=== PATIENT | female | born 1995 | race Caucasian/White ===

== ENCOUNTER 2017-11-19 12:01 | Outpatient (CLI) | payer OTHER ==
[2017-11-19 14:45] VITALS: BP 142/78; PULSE 103; RESP 18; TEMP 97.2
== END 2017-11-19 13:16 | disposition home or self-care (01) ==
LOC: FBPOP 12:01 → EDUNIT# 12:01 → FBPOP 13:16
PROVIDERS: ATTEND Obstetrics & Gynecology Obstetrics
DX: Z53.9 Procedure and treatment not carried out, unspecified reason (principal)

== ENCOUNTER 2018-01-03 05:38 | Inpatient (IN) | payer OTHER ==
[2018-01-03] MEDS ORDERED: ceFAZolin IN SWFI 2 GM/20 ML SYRINGE IVP ONE (05:48)
[2018-01-03] MEDS ORDERED: CITRIC ACID-SODIUM CITRATE 15 ML CUP PO ONE (05:48)
[2018-01-03] MEDS: LACTATED RINGERS 1,000 ML IV SCH ×2 (06:06→16:11)
[2018-01-03 06:10] LABS: Basophils % (A) 0 %; Eosinophils # (A) 0.1 k/uL (0-0.7); Eosinophils % (A) 1 %; HCT 36.5 % (34.0-46.0); HGB 12.3 gm/dL (11.4-16.0); Lymphocytes # (A) 2.2 k/uL (1.0-4.8); Lymphocytes % (A) 20 %; MCH 28.3 pg (25.0-35.0); MCHC 33.6 g/dL (31.0-37.0); MCV 84.1 fL (80.0-100.0); Mean Platelet Volume 7.6; Monocytes # (A) 0.4 k/uL (0-1.0); Monocytes % (A) 3 %; Neutrophils # (A) 7.9 k/uL (1.3-7.7); Neutrophils % (A) 73 %; Platelet Count 231 k/uL (150-450); RBC 4.34 m/uL (3.80-5.40); RDW 13.7 % (11.5-15.5); WBC 10.9 k/uL (3.8-10.6)
[2018-01-03 06:34] VITALS: BMI 34.8
[2018-01-03] MEDS ORDERED: LACTATED RINGERS 1,000 ML BAG IV ONE (07:30)
[2018-01-03] MEDS ORDERED: OXYTOCIN 10 UNIT/ML 1 ML VIAL ONE (07:30)
[2018-01-03] MEDS ORDERED: NALBUPHINE 10 MG/ML AMPUL ONE (07:30)
[2018-01-03] MEDS ORDERED: MORPHINE SULFATE (PF) 0.3 MG/0.3 ML SYR ONE (07:30)
[2018-01-03] MEDS ORDERED: PHENYLEPHRINE-0.9% NACL SYG 1 MG/10 ML SYRINGE ONE (07:30)
[2018-01-03] MEDS ORDERED: ePHEDrine 50 MG/ML 1 ML AMP ONE (07:30)
[2018-01-03] MEDS ORDERED: ONDANSETRON 4 MG/2 ML VIAL ONE (07:30)
[2018-01-03] MEDS ORDERED: diphenhydrAMINE 50 MG CAP PO PRN (08:15)
[2018-01-03] MEDS ORDERED: ACETAMINOPHEN TAB 325 MG TAB PO PRN (08:15)
[2018-01-03] MEDS ORDERED: OXYTOCIN 20 UNITS/1000 ML NS 1,000 ML IV SCH (08:15)
[2018-01-03] MEDS ORDERED: diphenhydrAMINE 25 MG CAP PO PRN (08:15)
[2018-01-03] MEDS ORDERED: diphenhydrAMINE 50 MG/ML 1 ML VIAL IVP PRN ×3 (08:15→11:46)
[2018-01-03] MEDS ORDERED: METOCLOPRAMIDE 5 MG/ML 2 ML VIAL IVP PRN (08:15)
[2018-01-03] MEDS ORDERED: NALOXONE 0.4 MG/ML 1 ML VIAL IV PRN ×2 (08:15→11:46)
[2018-01-03] MEDS ORDERED: ZOLPIDEM 5 MG TAB PO PRN (08:15)
[2018-01-03] MEDS ORDERED: ONDANSETRON 4 MG/2 ML VIAL IVP PRN (08:15)
[2018-01-03] MEDS ORDERED: ACETAMINOPHEN IV (For NPO) 1,000 MG in EMPTY BAG 1 BAG IVPB STA (08:20)
--- NOTE | 2018-01-03 08:22 | P.HPOB ---
History of Present Illness H&P Date: 01/03/18 Chief Complaint: IUP at 39-0/7 weeks, history of 1 desires repeat This is a 22-year-old 2 para 1 at 39-0/7 weeks with an estimated date of confinement of 01/10/2018. Patient presents for repeat and she had a prior secondary to arrest of labor. This morning she notes good movement denies contractions, vaginal bleeding, loss of fluid. On blood work blood type B+, rubella immune, hepatitis B surface antigen negative, HIV negative, RPR nonreactive, GBS negative. Review of Systems Constitutional: Denies chills, Denies fever Cardiovascular: Reports edema Respiratory: Denies cough Gastrointestinal: Denies constipation, Denies diarrhea Genitourinary: Reports Past Medical History Past Medical History: Asthma History of Any Multi-Drug Resistant Organisms: None Reported Past Surgical History: Section Past Anesthesia/Blood Transfusion Reactions: No Reported Reaction Past Psychological History: No Psychological Hx Reported Smoking Status: Never smoker Past Alcohol Use History: None Reported Past Drug Use History: None Reported - Past Family History Mother Family Medical History: No Reported History Father Family Medical History: Hyperlipidemia, Hypertension Medications and Allergies Home Medications Medication Instructions Recorded Confirmed Type Pnv,Calcium 72/Iron/Folic Acid 1 tab PO DAILY 08/10/17 01/03/18 History [ Plus Tablet] Allergies Allergy/AdvReac Type Severity Reaction Status Date / Time No Known Allergies Allergy Verified 01/03/18 05:47 Exam Osteopathic Statement: *. No significant issues noted on an osteopathic structural exam other than those noted in the History and Physical/Consult. - Vital Signs Vital signs: Vital Signs Temp Pulse Resp BP Pulse Ox 01/03/18 05:47 97.3 F L 115 H 16 131/81 97 Intake and Output 01/02/18 01/03/18 01/03/18 22:59 06:59 14:59 Other: # Voids 1 Weight 107.048 kg - OBG Physical Exam Abdomen: gravid Results Result Diagrams: 01/03/18 06:00 Abnormal Lab Results - Last 24 Hours (Table) 01/03/18 Range/Units 06:00 WBC 10.9 H (3.8-10.6) k/uL Neutrophils # 7.9 H (1.3-7.7) k/uL Assessment and Plan (1) Term Current Visit: Yes Status: Acute Code(s): Z34.80 - ENCOUNTER FOR SUPRVSN OF NORMAL , UNSP TRIMESTER SNOMED Code(s): 00477091 (2) H/O section Current Visit: Yes Status: Acute Code(s): Z98.891 - HISTORY OF UTERINE SCAR FROM PREVIOUS SURGERY SNOMED Code(s): 905564834 Plan: Plan repeat section this morning. Questions answered in detail risks reviewed including but not limited to infection, bleeding, damage to bladder, injury. Patient states understanding and informed consent was obtained. Time with Patient: Less than 30
--- NOTE | 2018-01-03 08:25 | P.OP ---
Date of Procedure: 01/03/18 Preoperative Diagnosis: IUP at 39-0/7 weeks, history of 1 desires repeat. Postoperative Diagnosis: Same Procedure(s) Performed: Repeat section Anesthesia: spinal Surgeon: Briseyda Ochoa Laborer [employer] #1: Kassidy Herrera Estimated Blood Loss (ml): 600 IV fluids (ml): 800 Urine output (ml): 100 Pathology: other (Placenta) Condition: stable Disposition: observation Indications for Procedure: History of 1 desires repeat Operative Findings: Normal uterus tubes and ovaries were appreciated Description of Procedure: The patient was prepped and draped in the usual fashion after spinal anesthesia was administered by anesthesia. A Pfannenstiel incision was made and extended of the abdominal cavity without difficulty. The bladder peritoneum was elevated and incised and reflected distally. A 2 cm incision was made in the transverse plane of the lower uterine segment to enter the uterus at which time clear fluid was noted. The incision was extended in both directions using the bandage scissors. The head was encountered within the field and delivered up and through the incision where the nose and mouth were thoroughly suctioned. Remainder of the was delivered onto the surgical field where the cord was doubly clamped, cut, and the was passed for resuscitative measures with weight and Apgars as noted above. A segment of cord was then doubly clamped, cut, and set aside should cord gases become necessary. The placenta was delivered manually, intact, and was grossly normal with a grossly normal three-vessel cord. The uterus was exteriorized and the interior cavity of the uterus swept of any remaining placental and membranous fragments with a laparotomy sponge. The margins of the incision were grasped with Allis clamps and the incision closed in 2 layers. First layer was a running locking layer of 0 vicryl from margin to margin followed by a second layer of 0- vicryl from margin to margin. Any small points of bleeding were then made hemostatic with the Bovie. Once hemostasis was achieved, the posterior cul-de-sac was suctioned with a guard and the uterine and ovarian findings are as noted above. The uterus was replaced within the abdominal cavity and the gutters swept of any remaining blood fluid or clot. The incision was again reexamined and hemostasis was noted to be excellent. Any small point of bleeding were made hemostatic with the Bovie. Once hemostasis was achieved the parietal peritoneum was loosely reapproximated. The layer of muscles were examined and made hemostatic with the Bovie. Attention was then turned to the fascia which was closed with 2 running stitches of 0 Vicryl proceeding from the lateral margins to the midpoint. The subcutaneous tissues were irrigated, made hemostatic with the Bovie, and reapproximated with a running stitch of 30 vicryl. The skin was reapproximated with 4-0 vicryl. Estimated blood loss for the case was approximately 600 mL. All sponge instrument and needle counts are correct. There were no complications. The patient tolerated the procedure well and proceeded to the recovery room in stable condition. Both mother and infant are resting comfortably in recovery.
[2018-01-03] MEDS ORDERED: IBUPROFEN IV 800 MG in SODIUM CHLORIDE 0.9% 250 ML IV ONE (09:00)
[2018-01-03] MEDS ORDERED: KETOROLAC 30 MG/ML 1 ML VIAL IVP PRN (11:46)
[2018-01-03] MEDS ORDERED: MORPHINE SULF 5MG/10ML VL IVP PRN (11:46)
[2018-01-03] MEDS ORDERED: NALBUPHINE 10 MG/ML AMPUL IV PRN (11:46)
--- NOTE | 2018-01-03 12:37 | P.PNOBGPC ---
Subjective - Subjective Principal diagnosis: POD 1 RCS Interval history: 22yo that presented for RCS this am. she is feeling well postoperatively and denies pain at this time. snyder remains and is draining clear yellow urine. tolerating clear liquids without n/v. minimal lochia is noted Patient reports: Reports appetite normal, Reports pain well controlled [place]: doing well Objective - Vital Signs Latest vital signs: Vital Signs Temp Pulse Resp BP Pulse Ox 01/03/18 12:20 97 F L 99 15 134/61 01/03/18 10:23 97 F L 94 16 120/71 01/03/18 09:53 97 15 126/70 01/03/18 09:23 98 15 123/70 98 01/03/18 09:04 93 14 121/52 97 01/03/18 08:51 98 14 127/61 96 01/03/18 08:38 100 14 124/59 95 01/03/18 08:23 97 F L 96 15 126/64 96 01/03/18 05:47 97.3 F L 115 H 16 131/81 97 Intake and Output 01/02/18 01/03/18 01/03/18 22:59 06:59 14:59 Output Total 850 Balance -850 Output: Urine 250 Estimated Blood Loss 600 Other: Voiding Method Indwelling Catheter # Voids 1 Weight 107.048 kg - Exam Abdomen: Present: soft Incision: Present: normal, dry, intact Uterus: Present: firm - Labs Labs: Abnormal Lab Results - Last 24 Hours (Table) 01/03/18 Range/Units 06:00 WBC 10.9 H (3.8-10.6) k/uL Neutrophils # 7.9 H (1.3-7.7) k/uL Assessment and Plan (1) Term Current Visit: Yes Status: Acute Code(s): Z34.80 - ENCOUNTER FOR SUPRVSN OF NORMAL , UNSP TRIMESTER SNOMED Code(s): 23361766 (2) H/O section Current Visit: Yes Status: Acute Code(s): Z98.891 - HISTORY OF UTERINE SCAR FROM PREVIOUS SURGERY SNOMED Code(s): 162227984 Plan: doing well post operatively, will plan snyder removal tonight and advance diet as tolerated.
[2018-01-04] MEDS: LACTATED RINGERS 1,000 ML IV SCH ×4 (02:23→10:53)
[2018-01-04] MEDS: SENNOSIDES-DOCUSATE SODIUM 1 EACH TAB PO SCH ×3 (02:26→20:32)
[2018-01-04] MEDS: IBUPROFEN 600 MG TAB PO PRN ×2 (07:46→15:13)
[2018-01-04 08:15] LABS: Basophils % (A) 0 %; Eosinophils # (A) 0.1 k/uL (0-0.7); Eosinophils % (A) 1 %; HGB 10.9 gm/dL (11.4-16.0); Lymphocytes # (A) 1.7 k/uL (1.0-4.8); Lymphocytes % (A) 19 %; MCH 28.1 pg (25.0-35.0); MCV 85.2 fL (80.0-100.0); Mean Platelet Volume 8.3; Monocytes # (A) 0.5 k/uL (0-1.0); Monocytes % (A) 5 %; Neutrophils # (A) 6.6 k/uL (1.3-7.7); Neutrophils % (A) 74 %; Platelet Count 182 k/uL (150-450); RBC 3.87 m/uL (3.80-5.40); RDW 13.6 % (11.5-15.5)
--- NOTE | 2018-01-04 08:34 | P.PN ---
Subjective Progress Note Date: 01/04/18 Slept well, moderate lochia rubra, pain well managed. Objective - Vital Signs Vital signs: Vital Signs Temp 98.7 F 01/04/18 04:00 Pulse 98 01/04/18 04:00 Resp 16 01/04/18 04:00 BP 119/66 01/04/18 04:00 Pulse Ox 97 01/04/18 04:00 Intake & Output 01/03/18 01/04/18 01/04/18 18:59 06:59 18:59 Output Total 1650 650 Balance -1650 -650 Output: Urine 1050 650 Uretheral ([place]) 800 Estimated Blood Loss 600 Other: Voiding Method Indwelling Catheter # Voids 1 - Constitutional General appearance: Present: average body habitus, cooperative - EENT Eyes: Present: PERRLA ENT: Present: hearing grossly normal - Neck Neck: Present: normal ROM - Respiratory Respiratory: bilateral: CTA - Cardiovascular Rhythm: regular - Gastrointestinal Gastrointestinal Comment(s): Fundus firm, midline, mobile, 18 week size, nontender. Incision clean and dry, well approximated. General gastrointestinal: Present: normal bowel sounds - Integumentary Integumentary: Present: normal - Musculoskeletal Musculoskeletal: Present: strength equal bilaterally - Psychiatric Psychiatric: Present: A&O x's 3, appropriate affect, intact judgment & insight - Labs CBC & Chem 7: 01/04/18 07:33 Labs: Abnormal Lab Results - Last 24 Hours (Table) 01/04/18 Range/Units 07:33 Hgb 10.9 L (11.4-16.0) gm/dL Hct 33.0 L (34.0-46.0) % Assessment and Plan Plan: Advance diet and activity. Circumcision performed this morning. Likely discharge home tomorrow. Time with Patient: Less than 30
[2018-01-04] MEDS: PRENATAL VIT-IRON-FOLIC ACID 1 EACH CAP PO SCH ×2 (12:36→17:00)
[2018-01-05] MEDS: LACTATED RINGERS 1,000 ML IV SCH (00:06)
[2018-01-05] MEDS: IBUPROFEN 600 MG TAB PO PRN ×2 (00:25→08:52)
[2018-01-05 07:53] VITALS: BP 132/81; PULSE 95; RESP 16; TEMP 98
[2018-01-05] MEDS: SENNOSIDES-DOCUSATE SODIUM 1 EACH TAB PO SCH (07:59)
[2018-01-05] MEDS: PRENATAL VIT-IRON-FOLIC ACID 1 EACH CAP PO SCH (09:28)
--- NOTE | 2018-01-05 10:17 | P.DS ---
Providers Date of admission: 01/03/18 05:38 Expected date of discharge: 01/05/18 Attending physician: Briseyda Ochoa Primary care physician: Stated None Hospital Course: Repeat section, declining option for . essentially unremarkable, group B strep cultures negative, rubella status immune, blood type B positive. Please see dictated history and physical for details. Patient underwent a repeat low transverse section, declining option for tubal ligation. She gave to a liveborn male with scores of 8 and 9 at one and 5 minutes respectively. Infant weighed 3600 g or 7 lbs. 15 oz. Please see dictated operative note for details. This morning the patient is doing well. She is voiding, and bleeding, passing flatus without difficulty. Vital signs are stable and she is afebrile. has been circumcised, he is doing well. Patient is not breast- feeding. Incision is clean and dry, intact, with Steri-Strips applied. Fundus is firm, midline, symmetric, 18 week size. Patient is judged to be in very good condition for discharge home. She is being discharged home with instructions to follow-up in the office for incision check in 2 weeks. She will use [id number] ibuprofen products, 200 mg pills, 3 every 6 hours as needed. I've asked her to call with any fevers shakes or chills, foul smelling or copious lochia, with any pain not alleviated by [id number] products, or indeed with any concerns. will follow-up with diesel service apprentice as instructed. Patient Condition at Discharge: Good Plan - Discharge Summary Discharge Rx Participant: Yes New Discharge Prescriptions: No Action Pnv,Calcium 72/Iron/Folic Acid [ Plus Tablet] 1 tab PO DAILY Discharge Medication List Pnv,Calcium 72/Iron/Folic Acid [ Plus Tablet] 1 tab PO DAILY 08/10/17 [ History] Follow up Appointment(s)/Referral(s): Briseyda Ochoa DO [Doctor of Osteopathic Medicine] - 2 Weeks Kassidy Herrera MD [STAFF PHYSICIAN] - As Needed Discharge Disposition: HOME SELF-CARE
== END 2018-01-05 11:00 | disposition home or self-care (01) | DRG 766 ==
LOC: 4FBP 05:38
PROVIDERS: ADMIT Obstetrics & Gynecology Obstetrics; ATTEND Obstetrics & Gynecology Obstetrics
PROC: 10D00Z1 Extraction of Products of Conception, Low, Open Approach (ICD-10-PCS; principal; 2018-01-03 07:30)
DX: O34.211 Maternal care for low transverse scar from previous cesarean delivery (principal); Z37.0 Single live birth; Z3A.39 39 weeks gestation of pregnancy; Z82.49 Family history of ischemic heart disease and other diseases of the circulatory system
CPT/HCPCS: 85025; 86850; 86900; 86901; 88307

== ENCOUNTER 2018-11-17 21:47 | Emergency (ER) | payer OTHER ==
[2018-11-17 22:12] VITALS: TEMP 98.2
[2018-11-17] MEDS ORDERED: ACETAMINOPHEN TAB 500 MG TAB PO STA (22:39)
--- NOTE | 2018-11-17 22:49 | ED ---
Fall HPI - General Source: patient Mode of arrival: ambulatory <May Keller - Last Filed: 11/18/18 01:38> <Mirian Walker - Last Filed: 11/18/18 02:45> - General Chief Complaint: Fall Stated Complaint: Fall left arm pain Time Seen by Provider: 11/17/18 22:09 - History of Present Illness Initial Comments: 23-year-old female patient presents to the emergency department today for evaluation of left shoulder pain after experiencing a fall yesterday. Patient states that she slipped and fell and landed on the left arm. She denies hitting her head or losing consciousness patient denies any neck or back pain. States that she has been having pain to the shoulder with any attempt at movement today. She denies taking anything for her symptoms. States that she does have some intermittent sharp pains radiating down the arm. Denies any pain to the elbow or wrist. Denies any other injuries. Patient does report being 12 weeks . She denies abdominal pain, abnormal vaginal bleeding or discharge. Patient denies any headache, chest pain, shortness of breath, dizziness, weakness, abdominal pain, nausea, vomiting, or difficulties with bowel movements or urination. (May Keller) - Related Data Home Medications Medication Instructions Recorded Confirmed Pnv,Calcium 72/Iron/Folic Acid 1 tab PO DAILY 08/10/17 11/17/18 [ Plus Tablet] Allergies Allergy/AdvReac Type Severity Reaction Status Date / Time No Known Allergies Allergy Verified 11/17/18 22:32 Review of Systems ROS Other: All systems not noted in ROS Statement are negative. <May Keller - Last Filed: 11/18/18 01:38> ROS Other: All systems not noted in ROS Statement are negative. <Mirian Walker - Last Filed: 11/18/18 02:45> ROS Statement: Those systems with pertinent positive or pertinent negative responses have been documented in the HPI. Past Medical History Past Medical History: Asthma History of Any Multi-Drug Resistant Organisms: None Reported Past Surgical History: Section Past Anesthesia/Blood Transfusion Reactions: No Reported Reaction Past Psychological History: No Psychological Hx Reported Smoking Status: Never smoker Past Alcohol Use History: None Reported Past Drug Use History: None Reported - Past Family History Mother Family Medical History: No Reported History Father Family Medical History: Hyperlipidemia, Hypertension <May Keller M - Last Filed: 11/18/18 01:38> General Exam Limitations: no limitations General appearance: alert, in no apparent distress, other (This is a well- developed, well-nourished adult female patient in no acute distress. Vital signs upon presentation are temperature 98.2F, pulse 106, respirations 18, blood pressure 130/92, pulse ox 99% on room air.) Eye exam: Present: normal appearance, PERRL, EOMI. Absent: scleral icterus, conjunctival injection, periorbital swelling Neck exam: Present: normal inspection, full ROM, other (Nontender, no step-off, no deformity to firm midline palpation of the posterior cervical spine. Full range of motion without pain or limitation.). Absent: tenderness, meningismus, lymphadenopathy Respiratory exam: Present: normal lung sounds bilaterally. Absent: respiratory distress, wheezes, rales, rhonchi, stridor Cardiovascular Exam: Present: regular rate, normal rhythm, normal heart sounds. Absent: systolic murmur, diastolic murmur, rubs, gallop, clicks GI/Abdominal exam: Present: soft, normal bowel sounds. Absent: distended, tenderness, guarding, rebound, rigid Extremities exam: Present: normal inspection, full ROM (Full passive range of motion with minimal discomfort. Active range of motion causes increased discomfort.), normal capillary refill, other (Skin to the arm is pink, warm, dry. Cap refills less than 3 seconds. Radial pulses 2+ and equal bilaterally.) . Absent: tenderness, pedal edema, joint swelling, calf tenderness Back exam: Present: normal inspection, other (Nontender, no step-off, no deformity to firm midline palpation of the thoracic and lumbar vertebrae. Full range of motion without pain or limitation.) Neurological exam: Present: alert, oriented X3, CN II-XII intact Psychiatric exam: Present: normal affect, normal mood Skin exam: Present: warm, dry, intact, normal color. Absent: rash <May Keller M - Last Filed: 11/18/18 01:38> Vital Signs 11/17/18 11/17/18 22:09 23:18 Temperature 98.2 F Pulse Rate 106 H 96 Respiratory 18 16 Rate Blood Pressure 130/92 126/72 O2 Sat by Pulse 99 98 Oximetry Medical Decision Making - Radiology Data Radiology results: report reviewed, image reviewed <May Keller - Last Filed: 11/18/18 01:38> <Mirian Walker - Last Filed: 11/18/18 02:45> - Medical Decision Making 23-year-old female patient presents to the emergency department today for evaluation of left shoulder pain after soap and fall accident. Physical examination did reveal full range of motion to the left shoulder. Neurovascular status was intact. X-ray showed no acute fracture or malalignment. We did discuss diagnosis of left shoulder strain. She is instructed to apply ice to the area. She is instructed to take anti- inflammatory medications. She is instructed to perform gentle range of motion exercises. She is instructed to follow-up with her primary care physician for recheck in 1-2 days. Return parameters discussed in detail. She verbalizes understanding and agrees with this plan. (May Keller) I was available for consultation in the emergency department. The history and physical exam were done by the midlevel provider. I was consulted for this patient's care. I reviewed the case with the midlevel provider and based on their presentation of the patient, I agree with the assessment, medical decision making and plan of care as documented. (Mirian Walker) - Radiology Data 2 views of the left shoulder were obtained. Report was reviewed in its entirety. Impression by Dr. Myers shows normal left shoulder x-rays (May Keller) Disposition Is patient prescribed a controlled substance at d/c from ED?: No Time of Disposition: 23:09 <May Keller - Last Filed: 11/18/18 01:38> <Mirian Walker - Last Filed: 11/18/18 02:45> Clinical Impression: Left shoulder strain Disposition: HOME SELF-CARE Condition: Good Instructions (If sedation given, give patient instructions): Shoulder Sprain ( ED) Additional Instructions: Apply ice to the left shoulder 20 minutes at a time at least 4 times daily. Perform gentle range of motion exercises. Follow-up with your primary care physician for recheck in 1-2 days. Return to the emergency department immediately for any new, worsening, or concerning symptoms. Referrals: Ankit Sequeira DO [Primary Care Provider] - 1-2 days
--- NOTE | 2018-11-17 23:04 | XR ---
EXAM: XR Left Shoulder Complete, 2 or More Views CLINICAL HISTORY: ITS.REASON XR Reason: Pain TECHNIQUE: Two or more views of the left shoulder. COMPARISON: No relevant prior studies available. FINDINGS: Bones/joints: Unremarkable. No acute fracture. No dislocation. Soft tissues: Unremarkable. IMPRESSION: Normal left shoulder x-rays.
[2018-11-17 23:20] VITALS: BP 126/72; PULSE 96; RESP 16
== END 2018-11-17 23:16 | disposition home or self-care (01) ==
LOC: EC 21:47
DX: O9A.211 Injury, poisoning and certain other consequences of external causes complicating pregnancy, first trimester (principal); S46.912A Strain of unspecified muscle, fascia and tendon at shoulder and upper arm level, left arm, initial encounter; Z3A.12 12 weeks gestation of pregnancy; W00.0XXA Fall on same level due to ice and snow, initial encounter
CPT/HCPCS: 99283

== ENCOUNTER 2019-05-23 09:06 | Inpatient (IN) | payer OTHER ==
[2019-05-22 12:00] VITALS: BMI 34.8
[2019-05-23] MEDS ORDERED: CITRIC ACID-SODIUM CITRATE 15 ML CUP PO ONE (09:37)
[2019-05-23] MEDS: LACTATED RINGERS 1,000 ML IV SCH ×3 (10:32→20:43)
[2019-05-23 10:55] LABS: Basophils % (A) 0 %; Eosinophils # (A) 0.1 k/uL (0-0.7); Eosinophils % (A) 1 %; HCT 35.6 % (34.0-46.0); HGB 11.4 gm/dL (11.4-16.0); Lymphocytes # (A) 2.4 k/uL (1.0-4.8); Lymphocytes % (A) 23 %; MCH 26.6 pg (25.0-35.0); MCHC 31.9 g/dL (31.0-37.0); MCV 83.4 fL (80.0-100.0); Mean Platelet Volume 8.2; Monocytes # (A) 0.5 k/uL (0-1.0); Monocytes % (A) 4 %; Neutrophils # (A) 7.2 k/uL (1.3-7.7); Neutrophils % (A) 69 %; Platelet Count 261 k/uL (150-450); RBC 4.26 m/uL (3.80-5.40); RDW 13.4 % (11.5-15.5); WBC 10.4 k/uL (3.8-10.6)
[2019-05-23] MEDS ORDERED: ONDANSETRON 4 MG/2 ML VIAL ONE (11:35)
[2019-05-23] MEDS ORDERED: MIDAZOLAM 2 MG/2 ML VIAL ONE (11:35)
[2019-05-23] MEDS ORDERED: OXYTOCIN 10 UNIT/ML 1 ML VIAL ONE (11:35)
[2019-05-23] MEDS ORDERED: fentaNYL (PF) 50 MCG/ML 2 ML AMP ONE (11:35)
[2019-05-23] MEDS ORDERED: LACTATED RINGERS 1,000 ML BAG IV ONE (11:35)
[2019-05-23] MEDS ORDERED: ePHEDrine SULFATE/0.9% NACL/PF 50 MG/5 ML SYRINGE IV ONE (11:35)
[2019-05-23] MEDS ORDERED: DEXAMETHASONE SOD PHOS (MDV) 100 MG/10 ML VIAL ONE (11:35)
[2019-05-23] MEDS ORDERED: MORPHINE SULFATE (PF) 0.3 MG/0.3 ML SYR ONE (11:35)
[2019-05-23] MEDS ORDERED: diphenhydrAMINE 50 MG/ML 1 ML VIAL IVP PRN ×3 (12:27→12:32)
[2019-05-23] MEDS ORDERED: MORPHINE SULFATE 2 MG/ML SYRINGE IVP PRN (12:27)
[2019-05-23] MEDS ORDERED: NALBUPHINE 10 MG/ML (1 ML AMP) IV PRN (12:27)
[2019-05-23] MEDS ORDERED: KETOROLAC 30 MG/ML 1 ML VIAL IVP PRN (12:27)
[2019-05-23] MEDS ORDERED: NALOXONE 0.4 MG/ML 1 ML VIAL IV PRN ×2 (12:27→12:32)
[2019-05-23] MEDS ORDERED: HYDROcodone/APAP 5-325MG 1 EACH TAB PO PRN (12:32)
[2019-05-23] MEDS ORDERED: ONDANSETRON 4 MG/2 ML VIAL IVP PRN (12:32)
[2019-05-23] MEDS ORDERED: ACETAMINOPHEN IV (For NPO) 1,000 MG in EMPTY BAG 1 BAG IVPB ONE (12:32)
[2019-05-23] MEDS ORDERED: diphenhydrAMINE 50 MG CAP PO PRN (12:32)
[2019-05-23] MEDS ORDERED: ACETAMINOPHEN TAB 325 MG TAB PO PRN (12:32)
[2019-05-23] MEDS ORDERED: ZOLPIDEM 5 MG TAB PO PRN (12:32)
[2019-05-23] MEDS ORDERED: METOCLOPRAMIDE 5 MG/ML 2 ML VIAL IVP PRN (12:32)
[2019-05-23] MEDS ORDERED: diphenhydrAMINE 25 MG CAP PO PRN (12:32)
[2019-05-23] MEDS ORDERED: IBUPROFEN IV 800 MG in SODIUM CHLORIDE 0.9% 250 ML IV ONE (12:34)
[2019-05-23] MEDS ORDERED: OXYTOCIN 20 UNITS/1000 ML NS 1,000 ML IV SCH (12:45)
--- NOTE | 2019-05-23 13:31 | P.HPOB ---
History of Present Illness H&P Date: 05/23/19 Chief Complaint: IUP @ 39 0/7 weeks, h/o c section x 2 This is a 24-year-old 3 para 2001 at 39-0/7 weeks that presents to labor and delivery for repeat section with tubal ligation. Patient states she is completed with family planning. Patient has had uncomplicated care with myself. Patient presents with good movement, she denies contractions, loss of fluid or vaginal bleeding today. On blood work shows a blood type of B+, rubella immune, hepatitis B surface antigen negative, HIV negative, RPR nonreactive, GBS is negative in addition. Review of Systems Constitutional: Denies chills, Denies fatigue, Denies fever Ears, nose, mouth and throat: Denies headache Cardiovascular: Reports edema Respiratory: Denies dyspnea Gastrointestinal: Denies nausea, Denies vomiting Genitourinary: Reports Past Medical History Past Medical History: Asthma Additional Past Medical History / Comment(s): CURRENT History of Any Multi-Drug Resistant Organisms: None Reported Past Surgical History: Section Past Anesthesia/Blood Transfusion Reactions: Family History of Problems w/ Anesthesia Additional Past Anesthesia/Blood Transfusion Reaction / Comment(s): MOTHER HAD PONV, TOOK LONGER TO AWAKEN Past Psychological History: No Psychological Hx Reported Smoking Status: Never smoker Past Alcohol Use History: None Reported Past Drug Use History: None Reported - Past Family History Mother Family Medical History: No Reported History Father Family Medical History: Hyperlipidemia, Hypertension Medications and Allergies Home Medications Medication Instructions Recorded Confirmed Type Acetaminophen [Tylenol Extra 1,000 mg PO Q6H PRN 05/22/19 05/23/19 History Strength] Albuterol Inhaler [Ventolin Hfa 1 - 2 puff INHALATION RT-Q6H PRN 05/22/19 05/23/19 History Inhaler] Allergies Allergy/AdvReac Type Severity Reaction Status Date / Time No Known Allergies Allergy Verified 05/22/19 11:47 Exam Osteopathic Statement: *. No significant issues noted on an osteopathic structural exam other than those noted in the History and Physical/Consult. 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 Cervical exam is deferred at this time. Results Result Diagrams: 05/23/19 10:30 Assessment and Plan (1) H/O section Current Visit: No Status: Acute Code(s): Z98.891 - HISTORY OF UTERINE SCAR FROM PREVIOUS SURGERY SNOMED Code(s): 174050371 (2) Term Current Visit: No Status: Acute Code(s): Z34.80 - ENCOUNTER FOR SUPRVSN OF NORMAL , UNSP TRIMESTER SNOMED Code(s): 14396094 Plan: Patient is admitted to labor and delivery for planned repeat section with tubal ligation. Surgery is reviewed with the patient in detail including but not limited to infection, bleeding, damage to bladder, bowel, ureteric, o ther pelvic structures, or injury. Patient states understanding and wishes to proceed patient states she is completed with family planning and desires tubal ligation risks of failure with the tubal are discussed 2-3 per thousand are reviewed patient states understanding if she misses.a period. She is to be seen.
--- NOTE | 2019-05-23 13:33 | P.OP ---
Date of Procedure: 05/23/19 Preoperative Diagnosis: IUP at 39-0/7 weeks, history of 2 desires repeat Postoperative Diagnosis: Same Procedure(s) Performed: Repeat section with tubal ligation Anesthesia: spinal Surgeon: Briseyda Ochoa Flour Mixer Helper #1: Bobby Delgado Estimated Blood Loss (ml): 500 IV fluids (ml): 1,000 Urine output (ml): 200 Pathology: none sent Condition: stable Disposition: PACU Indications for Procedure: h/o c section x 2 and family status complete Operative Findings: Normal uterus tubes and ovaries were appreciated. Female infant delivered at 1209, weight of 8 lbs. 0 oz. with Apgars of 9 and 9 at one and 5 minutes respect daily. Description of Procedure: The patient was prepped and draped in the usual fashion after spinal anesthesia was administered by the anesthesia department.. A Pfannenstiel incision was made and extended of the abdominal cavity without difficulty. The bladder peritoneum was elevated and incised and reflected distally. A 2 cm incision was made in the transverse plane of the lower uterine segment to enter the uterus at which time clear fluid was noted. The incision was extended in both directions using the bandage scissors. The head was encountered within the field and delivered up and through the incision where the nose and mouth were thoroughly suctioned. Remainder of the was delivered onto the surgical field where the cord was doubly clamped, cut, and the infant was passed for resuscitative measures with weight and Apgars as noted above. The placenta was delivered manually, intact, and was grossly normal with a grossly normal three-vessel cord. The uterus was exteriorized and the interior cavity of the uterus swept of any remaining placental and membranous fragments with a laparotomy sponge. The margins of the incision were grasped with Allis clamps and the incision closed from one lateral edge the other lateral edge, with 0 Vicryl. Any small points of bleeding were then made hemostatic with the Bovie. Once hemostasis was achieved, the posterior cul-de-sac was suctioned with a guard and the uterine and ovarian findings are as noted above. The left fallopian tube was then grasped with the Filshie clip applicator and applied according to canine service instructor trainer's instructions this was then repeated on the opposite side. The uterus was replaced within the abdominal cavity and the gutters swept of any remaining blood fluid or clot. The incision was again reexamined and hemostasis was noted to be excellent. Any small point of bleeding were made hemostatic wi th the Bovie. Once hemostasis was achieved the parietal peritoneum was loosely reapproximated. The layer of muscles were examined and made hemostatic with the Bovie. Attention was then turned to the fascia which was closed with 2 running stitches of 0 Vicryl proceeding from the lateral margins to the midpoint. The subcutaneous tissues were irrigated, made hemostatic with the Bovie, and reappro ximated with a running stitch of 30 Vicryl The skin was reapproximated with 4-0 Vicryl. Estimated blood loss for the case was approximately 500 mL. All sponge instrument and needle counts are correct. There were no complications. The patient tolerated the procedure well and proceeded to the recovery room in stable condition. Both mother and are resting comfortably in recovery.
[2019-05-23] MEDS: SENNOSIDES-DOCUSATE SODIUM 1 EACH TAB PO SCH (20:43)
[2019-05-24] MEDS: LACTATED RINGERS 1,000 ML IV SCH (00:50)
[2019-05-24 07:25] LABS: Basophils % (A) 0 %; Eosinophils % (A) 0 %; HCT 31.2 % (34.0-46.0); HGB 10.3 gm/dL (11.4-16.0); Hypochromasia Slight; Lymphocytes # (A) 2.1 k/uL (1.0-4.8); Lymphocytes % (A) 19 %; MCH 27.6 pg (25.0-35.0); MCHC 32.9 g/dL (31.0-37.0); MCV 83.7 fL (80.0-100.0); Mean Platelet Volume 8.5; Monocytes # (A) 0.6 k/uL (0-1.0); Monocytes % (A) 5 %; Neutrophils # (A) 8.3 k/uL (1.3-7.7); Neutrophils % (A) 74 %; Platelet Count 246 k/uL (150-450); Poikilocytosis Slight; RBC 3.73 m/uL (3.80-5.40); RDW 13.5 % (11.5-15.5); WBC 11.3 k/uL (3.8-10.6)
[2019-05-24] MEDS: SENNOSIDES-DOCUSATE SODIUM 1 EACH TAB PO SCH ×2 (08:29→19:42)
--- NOTE | 2019-05-24 11:01 | P.PN ---
Progress Note - Text Progress Note Date: 05/24/19 POD 1 from c section with morphine spinal. doing well, denies any parasthesia, lower ext numbness, excessive pruritis or excessive pain. Able to ambulate, urinate this morning.
--- NOTE | 2019-05-24 11:41 | P.PNOBGPC ---
Subjective - Subjective Patient reports: Reports appetite normal, Reports voiding normally, Reports pain well controlled, Reports ambulating normally : doing well Objective - Vital Signs Latest vital signs: Vital Signs Temp Pulse Resp BP Pulse Ox 05/24/19 08:00 98.0 F 66 18 115/60 100 05/24/19 05:00 15 98 05/24/19 04:00 98 F 67 16 114/67 05/24/19 03:00 16 05/24/19 01:00 16 98 05/24/19 00:00 98.2 F 92 15 121/68 05/23/19 23:00 16 05/23/19 21:00 15 99 05/23/19 20:00 98 F 99 15 119/66 98 05/23/19 19:00 18 97 05/23/19 17:00 98.3 F 90 18 128/70 98 05/23/19 14:36 125/61 05/23/19 14:06 97.8 F 99 17 120/60 89 L 05/23/19 13:36 97.2 F L 93 20 118/66 99 05/23/19 13:21 97.5 F L 98 18 123/61 99 05/23/19 13:06 96.5 F L 93 17 120/60 99 05/23/19 12:51 96.6 F L 104 H 18 120/57 100 05/23/19 12:36 96.9 F L 100 18 126/58 97 Intake and Output 05/23/19 05/24/19 05/24/19 22:59 06:59 14:59 Intake Total 1000 Output Total 600 900 Balance 400 -900 Intake: IV 1000 Invasive Line 1 1000 Output: Urine 600 900 Uretheral ([place]) 300 Other: # Voids 1 - Exam Extremities: Present: normal Abdomen: Present: normal appearance, soft. Absent: distention, tenderness Incision: Present: normal, dry, intact Uterus: Present: normal, firm (The uterine fundus is tonic and appropriately tender around the umbilicus.) - Labs Labs: Abnormal Lab Results - Last 24 Hours (Table) 05/24/19 Range/Units 06:29 WBC 11.3 H (3.8-10.6) k/uL RBC 3.73 L (3.80-5.40) m/uL Hgb 10.3 L (11.4-16.0) gm/dL Hct 31.2 L (34.0-46.0) % Neutrophils # 8.3 H (1.3-7.7) k/uL Assessment and Plan (1) S/P section Current Visit: No Status: Acute Code(s): Z98.89 - OTHER SPECIFIED POSTPROCEDURAL STATES * DO NOT USE * SNOMED Code(s): 239441520 Plan: Continue routine postoperative and care. Possible discharge home tomorrow pending occasions. I have encouraged the patient to ambulate in the hallways routinely. Her diet has been advanced to regular.
[2019-05-24] MEDS: IBUPROFEN 600 MG TAB PO PRN ×2 (13:07→21:05)
[2019-05-25] MEDS: SENNOSIDES-DOCUSATE SODIUM 1 EACH TAB PO SCH (08:00)
[2019-05-25 09:23] VITALS: BP 137/88; PULSE 90; RESP 18; TEMP 98.3
--- NOTE | 2019-05-25 12:00 | P.DS ---
Providers Date of admission: 05/23/19 09:06 Expected date of discharge: 05/25/19 Attending physician: Briseyda Ochoa Primary care physician: Ankit Sequeira - Discharge Diagnosis(es) (1) S/P section Current Visit: No Status: Acute Hospital Course: The patient is a 24-year-old 3 para 2001 admitted at 39-0/7 weeks by good dating parameters for repeat low transverse section with intraoperative tubal occlusion with Filshie clips. She has signed consent for the tubal ligation in the office. Her has been uncomplicated and group B strep status is negative. On labor and delivery, she was taken the operating room where she underwent repeat low transverse section with intraoperative bilateral tubal occlusion with Filshie clips and an incompetent located fashion. Her postoperative course was unremarkable with vital signs remained stable and her temperature was afebrile throughout. She was deemed stable for discharge on postoperative day #2 was discharged home to follow-up in the office in 2 weeks for an incision check and 6 weeks routinely. Discharge instructions included calling for any significantly increased bleeding or foul- smelling lochia, significantly increased fever abdominal pain, perineal complaints, breast complaints, incisional complaints, or anything else that concerned her. She is additionally instructed to have nothing in the vagina for at least 6 weeks time to include intercourse and to abstain from any heavy lifting over the same period of time. She was additionally instructed to do no driving until off of all pain medications or 2 weeks' time, whichever came first. She understood her instructions and agrees to follow up as noted above. Discharge medications included [id number] analgesic pain medications as well as a prescription for [place] 5/325 mg, 1-2 by mouth every 6 hours when necessary pain, #20 dispensed with no refills. Maternal blood type is B+ and rubella status is immune. Discharge hemoglobin and hematocrit were 10.3 and 31.2 respectively. Procedures: #1. Repeat low transverse section #2. Intraoperative bilateral tubal occlusion with Filshie clips Patient Condition at Discharge: Good Plan - Discharge Summary Discharge Rx Participant: Yes New Discharge Prescriptions: No Action Acetaminophen [Tylenol Extra Strength] 1,000 mg PO Q6H PRN PRN Reason: Pain Albuterol Inhaler [Ventolin Hfa Inhaler] 1 - 2 puff INHALATION RT-Q6H PRN PRN Reason: ASTHMA SX Discharge Medication List Acetaminophen [Tylenol Extra Strength] 1,000 mg PO Q6H PRN 05/22/19 [History] Albuterol Inhaler [Ventolin Hfa Inhaler] 1 - 2 puff INHALATION RT-Q6H PRN 05/22/19 [History] Follow up Appointment(s)/Referral(s): Briseyda Ochoa DO [Doctor of Osteopathic Medicine] - 2 Weeks Discharge Disposition: HOME SELF-CARE
[2019-05-25] MEDS: IBUPROFEN 600 MG TAB PO PRN (14:20)
== END 2019-05-25 14:39 | disposition home or self-care (01) | DRG 785 ==
LOC: 4FBP 09:06
PROVIDERS: ADMIT Obstetrics & Gynecology Obstetrics; ATTEND Obstetrics & Gynecology Obstetrics
PROC: 0UL70CZ Occlusion of Bilateral Fallopian Tubes with Extraluminal Device, Open Approach (ICD-10-PCS; 2019-05-23)
PROC: 10D00Z1 Extraction of Products of Conception, Low, Open Approach (ICD-10-PCS; principal; 2019-05-23 10:00)
DX: O34.211 Maternal care for low transverse scar from previous cesarean delivery (principal); O99.52 Diseases of the respiratory system complicating childbirth; J45.909 Unspecified asthma, uncomplicated; Z37.0 Single live birth; Z3A.39 39 weeks gestation of pregnancy; Z30.2 Encounter for sterilization; Z82.49 Family history of ischemic heart disease and other diseases of the circulatory system
CPT/HCPCS: 85025; 86850; 86900; 86901

== ENCOUNTER 2019-10-10 14:11 | Emergency (ER) | payer OTHER ==
[2019-10-10 14:35] VITALS: BP 142/89; PULSE 100; RESP 18; TEMP 98.2
--- NOTE | 2019-10-10 15:48 | XR ---
EXAMINATION TYPE: XR knee complete RT DATE OF EXAM: 10/10/2019 COMPARISON: 08/18/2008 HISTORY: Pain, injury TECHNIQUE: Three-view right knee FINDINGS: No joint effusion is evident. Joint spaces are preserved. No acute fractures or dislocation s are evident. IMPRESSION: 1. Normal three-view right knee. 2. Follow-up exam is recommended 7-10 days from acute trauma for continued pain.
--- NOTE | 2019-10-10 16:00 | ED ---
Lower Extremity Injury HPI - General Chief Complaint: Extremity Injury, Lower Stated Complaint: Rt leg injury Time Seen by Provider: 10/10/19 14:24 Source: patient Mode of arrival: ambulatory Limitations: no limitations - History of Present Illness Initial Comments: Patient is a 24-year-old female presenting to emergency Department with complaints of pain to her right lower leg. Patient states today she went to step over a child gate when her child ran into her and the gate collapsed onto her right lower calf area. Patient does have bruising to the area and states she is having pain behind the right knee. Patient denies any previous injuries or surgeries to her right knee. She denies history of DVTs. She has no other complaints with the fall. Upon arrival to the ER, vital signs are stable. - Related Data Home Medications Medication Instructions Recorded Confirmed Acetaminophen [Tylenol Extra 1,000 mg PO Q6H PRN 05/22/19 05/23/19 Strength] Albuterol Inhaler [Ventolin Hfa 1 - 2 puff INHALATION RT-Q6H PRN 05/22/19 05/23/19 Inhaler] Allergies Allergy/AdvReac Type Severity Reaction Status Date / Time No Known Allergies Allergy Verified 10/10/19 14:32 Review of Systems ROS Statement: Those systems with pertinent positive or pertinent negative responses have been documented in the HPI. ROS Other: All systems not noted in ROS Statement are negative. Past Medical History Past Medical History: Asthma Additional Past Medical History / Comment(s): CURRENT History of Any Multi-Drug Resistant Organisms: None Reported Past Surgical History: Section, Tubal Ligation Past Anesthesia/Blood Transfusion Reactions: Family History of Problems w/ Anesthesia Additional Past Anesthesia/Blood Transfusion Reaction / Comment(s): MOTHER HAD PONV, TOOK LONGER TO AWAKEN Past Psychological History: No Psychological Hx Reported Smoking Status: Never smoker Past Alcohol Use History: None Reported Past Drug Use History: None Reported - Past Family History Mother Family Medical History: No Reported History Father Family Medical History: Hyperlipidemia, Hypertension General Exam - General Exam Comments Initial Comments: GENERAL: Well-appearing, well-nourished and in no acute distress. HEAD: Atraumatic, normocephalic. EYES: Pupils equal round and reactive to light, extraocular movements intact, sclera anicteric, conjunctiva are normal. ENT: Moist mucous membranes. NECK: Normal range of motion, supple without lymphadenopathy or JVD. LUNGS: Breath sounds clear to auscultation bilaterally and equal. No wheezes rales or rhonchi. HEART: Regular rate and rhythm without murmurs, rubs or gallops. ABDOMEN: Soft, nontender, normoactive bowel sounds. No guarding, no rebound. No masses appreciated. : Deferred EXTREMITIES: Patient has pain with palpation of the right posterior lower leg. There is some overlying bruising. He should has full right knee range of motion and ankle range of motion. Neurovascular intact. NEUROLOGICAL: Normal speech, normal gait. PSYCH: Normal mood, normal affect. SKIN: Warm, Dry, normal turgor, no rashes or lesions noted. Limitations: no limitations Course Vital Signs 10/10/19 14:32 Temperature 98.2 F Pulse Rate 100 Respiratory 18 Rate Blood Pressure 142/89 O2 Sat by Pulse 98 Oximetry Medical Decision Making - Medical Decision Making Patient is a 34-year-old female presenting with right lower leg pain after a gate fell onto her right lower leg. X-rays reveal no acute fractures dislocations. I discussed these findings with the patient suggested this most likely a contusion. Patient will use ice to the area and ibuprofen for pain relief. If symptoms persist after one to 2 weeks, follow up with PCP. She is in agreement with this plan of care. Disposition Clinical Impression: Contusion of right lower leg Disposition: HOME SELF-CARE Condition: Stable Instructions (If sedation given, give patient instructions): Contusion in Adults (ED) Additional Instructions: Please return to the Emergency Department if symptoms worsen or any other concerns. Apply ice to the area for the first 24-48 hours. After then may alternate with heat. Use Motrin for pain relief. If symptoms persist after one to 2 weeks, follow up with PCP. Is patient prescribed a controlled substance at d/c from ED?: No Referrals: Ankit Sequeira DO [Primary Care Provider] - 1-2 days
== END 2019-10-10 16:10 | disposition home or self-care (01) ==
LOC: EC 14:11
DX: S80.11XA Contusion of right lower leg, initial encounter (principal); J45.909 Unspecified asthma, uncomplicated; Z79.899 Other long term (current) drug therapy; W20.8XXA Other cause of strike by thrown, projected or falling object, initial encounter; Y93.83 Activity, rough housing and horseplay; Y92.009 Unspecified place in unspecified non-institutional (private) residence as the place of occurrence of the external cause
CPT/HCPCS: 99283

== ENCOUNTER 2021-06-27 07:07 | Emergency (ER) | payer OTHER ==
[2021-06-27 07:21] VITALS: RESP 18; TEMP 98.7
--- NOTE | 2021-06-27 07:59 | ED ---
Fall HPI - General Chief Complaint: Fall Stated Complaint: Fall Time Seen by Provider: 06/27/21 07:22 Source: patient, RN notes reviewed Mode of arrival: wheelchair Limitations: no limitations - History of Present Illness Initial Comments: 26-year-old female patient coming in today for chief complaint of fall down 5 stairs 30 minutes prior to admission. Pain in right elbow over the posterior aspect, patient holding elbow in internal rotation for comfort. Pain in left lumbosacral region of back with ecchymosis. Patient denies any contact to head or neck or any loss of consciousness. Patient largest complaint pain in back which she took 800mg ibuprofen before admission. - Related Data Home Medications Medication Instructions Recorded Confirmed Albuterol Inhaler [Ventolin Hfa 2 puff INHALATION RT-QID PRN 06/27/21 06/27/21 Inhaler] Cyclobenzaprine [Flexeril] 5 mg PO DAILY PRN 06/27/21 06/27/21 Fluticasone Propionate [Flovent 2 puff INHALATION RT-BID 06/27/21 06/27/21 Hfa 44 mcg] Previous Rx's Medication Instructions Recorded Ibuprofen [Motrin] 600 mg PO Q8HR PRN #20 tab 06/27/21 Allergies Allergy/AdvReac Type Severity Reaction Status Date / Time No Known Allergies Allergy Verified 06/27/21 08:21 Review of Systems ROS Statement: Those systems with pertinent positive or pertinent negative responses have been documented in the HPI. ROS Other: All systems not noted in ROS Statement are negative. Past Medical History Past Medical History: Asthma Additional Past Medical History / Comment(s): CURRENT History of Any Multi-Drug Resistant Organisms: None Reported Past Surgical History: Section, Tubal Ligation Past Anesthesia/Blood Transfusion Reactions: Family History of Problems w/ Anesthesia Additional Past Anesthesia/Blood Transfusion Reaction / Comment(s): MOTHER HAD PONV, TOOK LONGER TO AWAKEN Past Psychological History: No Psychological Hx Reported Smoking Status: Never smoker Past Alcohol Use History: None Reported Past Drug Use History: None Reported - Past Family History Mother Family Medical History: No Reported History Father Family Medical History: Hyperlipidemia, Hypertension General Exam Limitations: no limitations, physical limitation General appearance: alert, other Head exam: Present: atraumatic, normocephalic, normal inspection Eye exam: Present: normal appearance, PERRL, EOMI. Absent: scleral icterus, conjunctival injection, periorbital swelling ENT exam: Present: normal exam, mucous membranes moist Neck exam: Present: normal inspection. Absent: tenderness, meningismus, lymphadenopathy Respiratory exam: Present: normal lung sounds bilaterally. Absent: respiratory distress, wheezes, rales, rhonchi, stridor Cardiovascular Exam: Present: regular rate, normal rhythm, normal heart sounds. Absent: systolic murmur, diastolic murmur, rubs, gallop, clicks GI/Abdominal exam: Present: soft, normal bowel sounds. Absent: distended, tenderness, guarding, rebound, rigid Extremities exam: Present: normal inspection, full ROM, normal capillary refill. Absent: tenderness, pedal edema, joint swelling, calf tenderness Right Elbow exam: Present: tenderness, swelling, pain w/ pronation/supination Back exam: Present: normal inspection, tenderness Neurological exam: Present: alert, oriented X3, CN II-XII intact Psychiatric exam: Present: normal affect, normal mood Skin exam: Present: warm, dry, intact, normal color, abrasion. Absent: rash Course Vital Signs 06/27/21 07:20 Temperature 98.7 F Pulse Rate 100 Respiratory 18 Rate Blood Pressure 128/78 O2 Sat by Pulse 97 Oximetry Medical Decision Making - Medical Decision Making X-ray of the elbow, lumbar spine are negative for acute fracture. Patient has a right elbow contusion, low back contusion will be discharged in stable condition she has no red flag symptoms. Return parameters were discussed Disposition Clinical Impression: Fall, Contusion of right elbow, Contusion of lower back Disposition: HOME SELF-CARE Condition: Stable Instructions (If sedation given, give patient instructions): Contusion in Adults (ED) Additional Instructions: Please return to the Emergency Department if symptoms worsen or any other concerns. Prescriptions: Ibuprofen [Motrin] 600 mg PO Q8HR PRN #20 tab PRN Reason: Pain Is patient prescribed a controlled substance at d/c from ED?: No Referrals: Ankit Sequeira DO [Primary Care Provider] - 1-2 days Time of Disposition: 08:30
--- NOTE | 2021-06-27 08:15 | XR ---
EXAMINATION TYPE: XR elbow complete RT DATE OF EXAM: 06/27/2021 CLINICAL HISTORY: Swelling and pain after fall injury. TECHNIQUE: Frontal, lateral and oblique images of the right elbow are obtained. COMPARISON: None FINDINGS: There is no acute fracture/dislocation evident in the right elbow. No abnormal fat pad si gns are seen. Focal mild subcutaneous edema over the olecranon. IMPRESSION: There is no acute fracture or dislocation in the right elbow.
--- NOTE | 2021-06-27 08:16 | XR ---
EXAMINATION TYPE: XR lumbosacral spine min 4V DATE OF EXAM: 06/27/2021 CLINICAL HISTORY: Fall injury with pain TECHNIQUE: Frontal, lateral, and oblique images of the lumbar spine are obtained. COMPARISON: None FINDINGS: There are 5 lumbar type vertebral bodies identified assuming hypoplastic bilateral T12 rib s. The lumbar spine shows straightened alignment without evidence of acute fracture or dislocation. Vertebral body heights and disk space heights are within normal limits. The oblique images appear w ithin normal limits. The overlying soft tissue appears unremarkable. IMPRESSION: No acute fracture or dislocation is seen in the lumbar spine.
[2021-06-27] MEDS ORDERED: ACET/COD 300 MG/30 MG STARTER PACK 6 TAB BTL PO STA (08:30)
[2021-06-27 09:17] VITALS: BP 111/84; PULSE 86
== END 2021-06-27 09:19 | disposition home or self-care (01) ==
LOC: EC 07:07
DX: S50.01XA Contusion of right elbow, initial encounter (principal); S30.0XXA Contusion of lower back and pelvis, initial encounter; J45.909 Unspecified asthma, uncomplicated; Z98.51 Tubal ligation status; W10.8XXA Fall (on) (from) other stairs and steps, initial encounter
CPT/HCPCS: 72110; 99283

== ENCOUNTER → 2022-10-09 | Outpatient (CLI) | payer OTHER ==
--- NOTE | 2022-10-09 11:03 | XR ---
EXAMINATION TYPE: XR lumbar spine 2 or 3V DATE OF EXAM: 10/09/2022 10:42 AM INDICATION: Patient age:Female; 27 years old; Reason for study: M62.830 Muscle spasm back; COMPARISON: 6 06/27/2021 TECHNIQUE: Frontal, lateral and coned in L5-S1 lateral views of the spine. FINDINGS: No evidence of any acute osseous pathology. No evidence of loss of vertebral body height i s seen. There is normal alignment of the lumbar vertebral bodies. No significant degeneration changes throughout the spine. IMPRESSION: No acute fracture. Minimal degeneration changes.
== END | disposition home or self-care (01) ==
LOC: RADXRMAIN 10:11
PROVIDERS: ATTEND Nurse Practitioner Family
DX: M47.817 Spondylosis without myelopathy or radiculopathy, lumbosacral region (principal); M62.830 Muscle spasm of back
CPT/HCPCS: 72100

== ENCOUNTER → 2022-11-02 | Outpatient (CLI) | payer OTHER ==
--- NOTE | 2022-11-02 14:10 | US ---
EXAMINATION TYPE: US abdomen complete DATE OF EXAM: 11/02/2022 COMPARISON: Ultrasound 03/16/2016 CLINICAL HISTORY: R10.11 RUQ pain. Right side pain. TECHNIQUE: Multiple sonographic images of the abdomen are obtained. FINDINGS: EXAM MEASUREMENTS: Liver Length: 17.2 cm Gallbladder Wall: 0.1 cm CBD: 0.3 cm Spleen: 11.0 cm Right Kidney: 11.4 x 5.8 x 4.8 cm Left Kidney: 12.1 x 4.8 x 4.0 cm Pancreas: Tail obscured by overlying bowel gas Liver: Echogenic, coarse and heterogenous Gallbladder: wnl Evidence for sonographic Valadez's sign: neg CBD: wnl Spleen: wnl Right Kidney: No hydronephrosis or masses seen Left Kidney: No hydronephrosis or masses seen Upper IVC: wnl Abd Aorta: No AAA visualized at time of scan The liver is coarse with increased echotexture. The intrahepatic portion of the IVC and proximal abd ominal aorta are within normal limits. There is no evidence of cholelithiasis. Common bile duct is unremarkable. The visualized portions of the pancreas are homogenous. The spleen is unremarkable. Kidneys are symmetric and free of hydronephrosis. No renal lesions are seen. IMPRESSION: Hepatocellular disease commonly relating to hepatic steatosis.
--- NOTE | 2022-11-03 06:23 | NM ---
EXAMINATION TYPE: NM hepatobiliary w EF DATE OF EXAM: 11/02/2022 COMPARISON: Same-day ultrasound abdomen HISTORY: Epigastric and right upper quadrant pain. TECHNIQUE: After the intravenous administration of 4.8 mCi Tc 99m Mebrofenin hepatobiliary scintigrap hy is performed. Immediate images post injection. FINDINGS: There is satisfactory initial accumulation of tracer by the liver. The gallbladder is visualized wit hin 25 minutes. The small bowel activity is noted within 25 minutes. At one hour 8 ounces of oral e nsure plus is given to mimic CCK and gallbladder ejection fraction is calculated at 58 %, in the norm al range. Therefore there is no scintigraphic evidence of cystic or common bile duct obstruction to suggest acute cholecystitis or gallbladder dyskinesia. IMPRESSION: Exam is within normal limits.
== END | disposition home or self-care (01) ==
LOC: RADUSWWP 12:19
PROVIDERS: ATTEND Family Medicine
DX: K76.0 Fatty (change of) liver, not elsewhere classified (principal); K76.89 Other specified diseases of liver; R10.11 Right upper quadrant pain
CPT/HCPCS: 76700; 78226; A9537

== ENCOUNTER → 2022-12-13 | Outpatient (CLI) | payer OTHER ==
--- NOTE | 2022-12-13 14:06 | CT ---
EXAMINATION TYPE: CT abdomen wo con DATE OF EXAM: 12/13/2022 HISTORY: RUQ pain. CT DLP: 805.7 mGycm. Automated Exposure Control for Dose Reduction was Utilized. TECHNIQUE: CT scan of the abdomen is performed with oral but without IV contrast. COMPARISON: Ultrasound abdomen November 02, 2022 FINDINGS: Within the limitations of a non-contrast study, the following observations are made. LUNG BASES: No significant abnormality is appreciated. LIVER/GB: No CT evidence of intraluminal gallstones. No surrounding fluid or fat stranding. No biliar y dilatation. PANCREAS: No significant abnormality is seen. SPLEEN: No significant abnormality is seen. ADRENALS: No significant abnormality is seen. KIDNEYS: No renal stones or hydronephrosis seen bilaterally. BOWEL: Oral contrast reaches at least the distal left colon. No suspicious small or large bowel dilat ation. Normal contrast-filled appendix. LYMPH NODES: No greater than 1cm abdominal lymph nodes are appreciated. A few prominent but subcentim eter lymph nodes throughout the retroperitoneum are noted. OSSEOUS STRUCTURES: No significant abnormality is seen. OTHER: No significant additional abnormality is seen. IMPRESSION: No acute findings seen on this study to account for patient's symptoms of right upper shanae drant pain.
== END | disposition home or self-care (01) ==
LOC: RADCTMAIN 12:03
PROVIDERS: ATTEND Family Medicine
DX: R10.11 Right upper quadrant pain (principal)
CPT/HCPCS: 74150; Q9967

== ENCOUNTER → 2023-06-21 | Outpatient (CLI) | payer OTHER ==
--- NOTE | 2023-06-21 11:46 | P.SLEEP ---
History of Present Illness DATE: 06/21/2023 CONSULTATION/NEW PATIENT EVALUATION HISTORY OF PRESENT ILLNESS/SLEEP-WAKE EVALUATION: 28-year-old lady had been evaluated in the sleep center for obstructive sleep apnea hypopnea syndrome. Patient was diagnosed with obstructive sleep apnea in about 2 years in another institution. She did not use sure CPAP equipment for about 10 months. I checked CPAP unit. Range of the pressure 5-15, average 9.9. Patient use it only for 14 nights, average 5.4 hours per night. Leak is only 1 L/m which is normal. Apnea-hypopnea index is 0.2 which is perfect. SLEEP SCHEDULE: Usually sleep schedule from 10 PM to 6 AM on weekdays from 10 PM to 7 AM on weekend. FALLING ASLEEP: No problems with falling asleep. DURING SLEEP: Patient snores without CPAP and no snoring with CPAP. Positive history of sweating. Patient may wake up from sleep up to 2 times with nocturia. No history of hypnogogical hallucinations, sleep paralysis, or cataplexy. DURING THE DAY/WAKE STATE: In the morning patient wake up tired, has problems with memory, irritability, sleepiness. Hallock sleepiness scale is increased to 14. Patient may take 1 nap during the day. PAST MEDICAL HISTORY: Anxiety, depression, asthma, headaches, acid reflux. PAST SURGICAL HISTORY: . MEDICATIONS: Pepcid 120 mg once a day, lamotrigine 125 mg once a day, propranolol 180 mg twice a day, fluoxetine 120 mg once a day, albuterol as needed. SOCIAL HISTORY: Positive for smoking in the past, alcohol consumption occasional. FAMILY HISTORY: Sleep apnea, hypertension, diabetes during the sleep, diabetes. REVIEW OF SYSTEMS: Snoring, awakenings from sleep and sleepiness if not using CPAP. No snoring with CPAP. No fevers. No double vision. No recent chest pain. No shortness of breath. No abdominal pain. No bleeding episodes. No blood in urine. No seizure episodes. PHYSICAL EXAMINATION: GENERAL: A pleasant patient without any distress. VITAL SIGNS: BP 108/73 , HR 70 , RR 18 , weight to 34.4 pounds, height 5 foot 8 inches, body mass index 35.5 . HEENT: PERRLA, EOMI. Evaluation of oropharynx showed tongue protrudes midline, low position of soft palate Mallampati 3. NECK: Supple. No JVD. Thyroid is not palpable. 17.25 inches in circumference. LUNGS: Clear to percussion and to auscultation. Good air exchange. No wheezing or rhonchi. HEART: S1, S2 regular. No murmurs, gallops or rubs. ABDOMEN: Soft and nontender. Bowel sounds are present. No organomegaly appreciated. EXTREMITIES: No clubbing or cyanosis. INTRANET SPECIALIST: Awake, alert, and oriented x3. Cranial nerves 2 to 7 intact. There is no fasciculation or atrophy noted. No focal deficits observed. ASSESSMENT: 1. Obstructive sleep apnea hypopnea syndrome diagnosed 2 years ago in another institution. Patient did not use CPAP equipment for several months. Reading from the machine showed normal respiration on CPAP. 2. Mild obesity. 3. Acid reflux. 4. Headaches. 5 anxiety. 6 . Depression. 7. History of asthma. 8. Status post . PLAN: 1. Patient will start to use CPAP equipment every night for the whole night. 2. Prescription for all necessary CPAP supplies have been written 3. Preferable position during sleep on the side. 4. No driving if patient feels any sleepiness. Patient is aware of civil and criminal liability for unsafe driving. 5. Sleep hygiene with regular sleep time for at least 7.5-8 hours. 6. Watching and losing weight. 7. Follow-up visit in 6 months or earlier if patient has any problems. Thank you very much for referring this patient for consultation. Sincerely, Salvatore Barrett MD, PhD, FAASM. Diplomat of [place] [employer], Sleep Medicine Board by [place] [employer] [employer] [facility] [place] Past Medical History Past Medical History: Asthma Additional Past Medical History / Comment(s): migraines History of Any Multi-Drug Resistant Organisms: None Reported Past Surgical History: Section, Tubal Ligation Past Anesthesia/Blood Transfusion Reactions: Family History of Problems w/ Anesthesia Additional Past Anesthesia/Blood Transfusion Reaction / Comment(s): MOTHER HAD PONV, TOOK LONGER TO AWAKEN Smoking Status: Never smoker - Past Family History Mother Family Medical History: No Reported History Father Family Medical History: Hyperlipidemia, Hypertension Medications and Allergies Home Medications Medication Instructions Recorded Confirmed Type Albuterol Inhaler [Ventolin Hfa 2 puff INHALATION RT-QID PRN 06/27/21 03/06/23 History Inhaler] Fluticasone Propionate [Flovent 2 puff INHALATION RT-BID 06/27/21 03/06/23 History Hfa 44 mcg] FLUoxetine HCL 20 mg PO DAILY 03/06/23 03/06/23 History Propranolol [Inderal] 40 mg PO BID 03/06/23 03/06/23 History Allergies Allergy/AdvReac Type Severity Reaction Status Date / Time No Known Allergies Allergy Verified 03/06/23 15:08 Sleep Note - Sleep Note Sleep Note: Temperature: Pulse Rate: Respiratory Rate: Blood Pressure: SpO2: Height: Weight: BMI: Neck Circumference:
== END ==
LOC: 3 N SLEEP 10:46
PROVIDERS: ATTEND Internal Medicine
DX: G47.33 Obstructive sleep apnea (adult) (pediatric) (principal); E66.9 Obesity, unspecified; K21.9 Gastro-esophageal reflux disease without esophagitis; R51.9 Headache, unspecified; F41.9 Anxiety disorder, unspecified; F32.A Depression, unspecified; J45.909 Unspecified asthma, uncomplicated; Z98.890 Other specified postprocedural states; Z79.51 Long term (current) use of inhaled steroids; Z87.891 Personal history of nicotine dependence
CPT/HCPCS: 99211

== ENCOUNTER 2023-07-18 09:45 | Day surgery (SDC) | payer OTHER ==
[2023-07-16 08:59] VITALS: BMI 34.7
--- NOTE | 2023-07-18 08:52 | P.GSHP ---
History of Present Illness H&P Date: 07/18/23 CHIEF COMPLAINT: GERD and change in bowel habits HISTORY OF PRESENT ILLNESS: The patient is a 28-year-old female who presents with gastroesophageal reflux disease andchange in bowel habits. Upper and lower endoscopy were offered for further evaluation and management. PAST MEDICAL HISTORY: Please see list. PAST SURGICAL HISTORY: Please see list. MEDICATIONS: Please see list. ALLERGIES: Please see list. SOCIAL HISTORY: No illicit drug use FAMILY HISTORY: No reports of Crohn disease or ulcerative colitis. REVIEW OF ORGAN SYSTEMS: CONSTITUTIONAL: No reports of fevers or chills. GI: Change in bowel habits PHYSICAL EXAM: VITAL SIGNS: Stable GENERAL: Well-developed pleasant in no acute distress. HEENT: No scleral icterus. Extraocular movements grossly intact. Moist buccal mucosa. NECK: Supple without lymphadenopathy. CHEST: Unlabored respirations. Equal bilateral excursions. CARDIOVASCULAR: Regular rate and rhythm. Distal 2+ pulses. ABDOMEN: Soft, nondistended. MUSCULOSKELETAL: No clubbing, cyanosis, or edema. ASSESSMENT: 1. Gastroesophageal reflux disease 2. Change in bowel habits PLAN: 1. Recommend proceeding with an upper and lower endoscopy Past Medical History Past Medical History: Asthma, Sleep Apnea/CPAP/BIPAP Additional Past Medical History / Comment(s): migraines, cpap History of Any Multi-Drug Resistant Organisms: None Reported Past Surgical History: Section, Tubal Ligation Past Anesthesia/Blood Transfusion Reactions: Family History of Problems w/ Anesthesia Additional Past Anesthesia/Blood Transfusion Reaction / Comment(s): MOTHER HAD PONV, TOOK LONGER TO AWAKEN Smoking Status: Never smoker - Past Family History Mother Family Medical History: No Reported History Father Family Medical History: Hyperlipidemia, Hypertension Medications and Allergies Home Medications Medication Instructions Recorded Confirmed Type Albuterol Inhaler [Ventolin Hfa 2 puff INHALATION RT-QID PRN 06/27/21 07/16/23 History Inhaler] Fluticasone Propionate [Flovent 2 puff INHALATION RT-BID 06/27/21 07/16/23 History Hfa 44 mcg] FLUoxetine HCL 40 mg PO DAILY 03/06/23 07/16/23 History Propranolol [Inderal] 40 mg PO BID 03/06/23 07/16/23 History Famotidine 20 mg PO DAILY 07/16/23 07/16/23 History lamoTRIgine 100 mg PO DAILY 07/16/23 07/16/23 History Allergies Allergy/AdvReac Type Severity Reaction Status Date / Time No Known Allergies Allergy Verified 03/06/23 15:08
[~2023-07-18 09:45] MED LIST: LACTATED RINGERS 1,000 ML IV SCH
[2023-07-18 10:28] VITALS: TEMP 97.2
[2023-07-18] MEDS ORDERED: LIDOCAINE 1% INJ 10MG/ML (20 ML MDV) ONE (11:10)
[2023-07-18] MEDS ORDERED: PROPOFOL 10 MG/ML 20 ML VIAL IV ONE (11:10)
[2023-07-18] MEDS ORDERED: fentaNYL (PF) 50 MCG/ML 2 ML AMP ONE (11:10)
[2023-07-18] MEDS ORDERED: MIDAZOLAM 2 MG/2 ML VIAL ONE (11:10)
--- NOTE | 2023-07-18 11:29 | P.PCN ---
Date of Procedure: 07/18/23 Description of Procedure: PREOPERATIVE DIAGNOSIS: Gastroesophageal reflux disease. Morbid obesity. POSTOPERATIVE DIAGNOSIS: Gastroesophageal reflux disease. Morbid obesity. Gastritis. Acute gastric ulcers with bleeding OPERATION: Esophagogastroduodenoscopy with biopsies along the esophagus, antrum and d uodenum SURGEON: Kassidy Sanchez MD ANESTHESIA: MAC. INDICATIONS: The patient is a 28-year-old female who presents with reflux disease. Benefits and risks of the procedure were described. Informed consent was obtained. DESCRIPTION: The patient was brought into the endoscopy suite and laid in the left lateral decubitus position. An Olympus gastroscope was passed along the posterior oropharynx down to the distal esophagus where the squamocolumnar junction was encountered at 40 cm from the incisors. The stomach was entered and no bile reflux was found. Additional findings are listed below. Biopsies with cold forceps were obtained of the antrum. The first through third portion of the duodenum was examined. Retroflexion of the scope confirmed Hill grade 2 lower esophageal valve. The squamocolumnar junction demonstrated LA grade B erosive esophagitis. The stomach was desufflated. The patient tolerated the procedure well. FINDINGS: Squamocolumnar junction 40 cm from the incisors. Diaphragmatic hiatus at 40 cm. Acute gastric ulcers with bleeding Hill grade 2 lower esophageal valve. LA grade B erosive esophagitis. Biopsies obtained of the duodenum and esophagus Chronic gastritis with biopsies obtained. RECOMMENDATIONS: Upper endoscopy as needed. Omeprazole and Carafate for 4 weeks
[2023-07-18 12:03] VITALS: RESP 16
[2023-07-18 12:23] VITALS: BP 123/82; PULSE 70
--- NOTE | 2023-07-18 12:25 | P.PCN ---
Date of Procedure: 07/18/23 Description of Procedure: PREOPERATIVE DIAGNOSIS: Change in bowel habits POSTOPERATIVE DIAGNOSIS: Microscopic colitis Change in bowel habits OPERATION: Colonoscopy with random biopsies for microscopic colitis Colonoscopy to the cecum, ileocecal valve and appendiceal orifice. SURGEON: Kassidy Sanchez MD. ANESTHESIA: MAC. INDICATIONS: The patient is a 28-year-old female who presents with change in bowel habits. Benefits and risks were described and informed consent was obtained. DESCRIPTION OF PROCEDURE: The patient had undergone Sutab prep. The patient had been brought into the operating room and laid in the left lateral decubitus position. After adequate intravenous sedation, the rectum was examined with 2% lidocaine jelly. No external hemorrhoids were encountered. The rectal tone was within normal limits. No lesions were palpated in the rectal vault. An Olympus colonoscope was advan mike until the cecum, ileocecal valve and appendiceal orifice were clearly viewed. The prep was excellent. No scattered diverticulosis was encountered. No colonic polyps were found. Random biopsies were obtained for microscopic colitis. Retroflexion of the scope demonstrated grade 1 internal hemorrhoids without active bleeding or inflammation. The colon was desufflated. The patient had tolerated the procedure well. Withdrawal time was over 6 minutes. FINDINGS: Aronchick preparation quality scale 1 (1-5) Internal hemorrhoids, grade 1 No external prolapsed hemorrhoids. No arteriovenous malformations. No adenomatous polyps. Random cold forceps biopsies for microscopic colitis RECOMMENDATIONS: Lower endoscopy as needed Plan - Discharge Summary Discharge Rx Participant: No New Discharge Prescriptions: New Sucralfate [Carafate] 1 gm PO BID #60 tablet Omeprazole [PriLOSEC] 40 mg PO DAILY #30 cap Continue Fluticasone Propionate [Flovent Hfa 44 mcg] 2 puff INHALATION RT-BID Propranolol [Inderal] 40 mg PO BID Albuterol Inhaler [Ventolin Hfa Inhaler] 2 puff INHALATION RT-QID PRN PRN Reason: Shortness Of Breath FLUoxetine HCL 40 mg PO DAILY lamoTRIgine 100 mg PO DAILY Discontinued Famotidine 20 mg PO DAILY Discharge Medication List Albuterol Inhaler [Ventolin Hfa Inhaler] 2 puff INHALATION RT-QID PRN 06/27/21 [History] Fluticasone Propionate [Flovent Hfa 44 mcg] 2 puff INHALATION RT-BID 06/27/21 [History] FLUoxetine HCL 40 mg PO DAILY 03/06/23 [History] Propranolol [Inderal] 40 mg PO BID 03/06/23 [History] lamoTRIgine 100 mg PO DAILY 07/16/23 [History] Omeprazole [PriLOSEC] 40 mg PO DAILY #30 cap 07/18/23 [Rx] Sucralfate [Carafate] 1 gm PO BID #60 tablet 07/18/23 [Rx] Follow up Appointment(s)/Referral(s): Kassidy Sanchez MD [STAFF PHYSICIAN] - 08/07/23 2:00 pm Patient Instructions/Handouts: *Surgery [facility] - (Anesthesia) Discharge Instructions Outpatient Surgery, Peptic Ulcer (DC), Diet for Stomach Ulcers and Gastritis (ED) Discharge Disposition: HOME SELF-CARE
== END 2023-07-18 12:32 | disposition home or self-care (01) ==
LOC: ORWHC2ENDO 09:45
PROVIDERS: ATTEND Surgery Plastic and Reconstructive Surgery
DX: K21.00 Gastro-esophageal reflux disease with esophagitis, without bleeding (principal); K64.0 First degree hemorrhoids; K29.50 Unspecified chronic gastritis without bleeding; J45.909 Unspecified asthma, uncomplicated; G47.33 Obstructive sleep apnea (adult) (pediatric); K52.839 Microscopic colitis, unspecified; K25.4 Chronic or unspecified gastric ulcer with hemorrhage; E66.01 Morbid (severe) obesity due to excess calories; I10 Essential (primary) hypertension; E78.5 Hyperlipidemia, unspecified; Z79.51 Long term (current) use of inhaled steroids; Z79.899 Other long term (current) drug therapy; Z68.41 Body mass index [BMI] 40.0-44.9, adult
CPT/HCPCS: 81025; 45380; 43239; J2250; J2001; J3010; J2704